=== PATIENT | female | born 1955 | race Caucasian/White ===

== ENCOUNTER → 2017-03-09 | Outpatient (CLI) | payer BC ==
[2017-03-09 08:19] LABS: HEMOGLOBIN 15.9 gm/dl (12.3-15.3); RED BLOOD COUNT 5.03 M/UL (4.00-5.10); WHITE BLOOD COUNT 7.2 K/UL (4.5-11.0)
[2017-03-09 08:50] LABS: BUN/CREATININE RATIO 20 (0-10)
== END ==
LOC: LAB 07:40
PROVIDERS: Internal Medicine
DX: E11.9 Type 2 diabetes mellitus without complications (principal); E55.9 Vitamin D deficiency, unspecified; E78.4 Other hyperlipidemia
CPT/HCPCS: 36415; 80048; 80061; 80076; 82043; 82570; 83036; 84443; 85025

== ENCOUNTER → 2017-03-15 | Outpatient (CLI) | payer BC | LOC: RAD 16:10 | DX: M79.672 Pain in left foot (principal) | CPT/HCPCS: 73630 ==

== ENCOUNTER → 2017-05-09 | Outpatient (CLI) | payer BC ==
[2017-05-09 10:51] LABS: BORDETELLA PERTUSSIS Not Detected (Negative); CHLAMYDOPHLA PNEUMONIAE Not Detected (Negative); CORONAVIRUS HKU1 Not Detected (Negative); CORONAVIRUS NL63 Not Detected (Negative); CORONAVIRUS OC43 Not Detected (Negative); CORONOAVIRUS 229E Not Detected (Negative); HUMAN METAPNEUMOVIRUS Not Detected (Negative); HUMAN RHINOVIRUS/ENTEROVIRUS Not Detected (Negative); INFLUENZA A Not Detected (Negative); INFLUENZA A H-1-2009 Not Detected (Negative); INFLUENZA A H1 Not Detected (Negative); INFLUENZA A H3 Not Detected (Negative); INFLUENZA B Not Detected (Negative); MYCOPLASMA PNEUMONIAE Not Detected (Negative); PARAINFLUENZA VIRUS 1 Not Detected (Negative); PARAINFLUENZA VIRUS 2 Not Detected (Negative); PARAINFLUENZA VIRUS 3 Not Detected (Negative); PARAINFLUENZA VIRUS 4 Not Detected (Negative); RESPIRATORY SYNCYTIAL VIRUS Not Detected (Negative)
== END ==
LOC: LAB 10:26
PROVIDERS: Internal Medicine
DX: L08.9 Local infection of the skin and subcutaneous tissue, unspecified (principal)
CPT/HCPCS: 87077; 87081; 87186; 87486; 87581; 87633; 87798

== ENCOUNTER → 2017-05-11 | Outpatient (CLI) | payer BC ==
[2017-05-11 11:24] LABS: HEMOGLOBIN 14.8 gm/dl (12.3-15.3); RED BLOOD COUNT 4.56 M/UL (4.00-5.10); WHITE BLOOD COUNT 5.7 K/UL (4.5-11.0)
== END ==
LOC: LAB 10:57 → OPSV 10:57
PROVIDERS: Physician Assistant
DX: E86.0 Dehydration (principal); R50.9 Fever, unspecified; R79.89 Other specified abnormal findings of blood chemistry
CPT/HCPCS: 36415; 80048; 83605; 85025; 87040; 96360; 96361; J7030

== ENCOUNTER → 2020-11-21 | Outpatient (CLI) | payer BC ==
[~2020-11-21] MED LIST: AREDS EYE VITAMIN PO; ASPIRIN CHEWABL81 MG PO; CO Q-10100 MG PO; CYMBALTA60 MG PO; DIOVAN80 MG PO; LOVAZA1 GM PO; TOPROL XL50 MG PO; ZOCOR80 MG PO
== END ==
LOC: EROP 08:57
DX: R19.7 Diarrhea, unspecified (principal); Z20.822 Contact with and (suspected) exposure to COVID-19
CPT/HCPCS: 87635

== ENCOUNTER → 2021-01-27 | Outpatient (CLI) | payer BC | LOC: MAMO 15:00 | DX: Z12.31 Encounter for screening mammogram for malignant neoplasm of breast (principal) | CPT/HCPCS: 77063; 77067 ==

== ENCOUNTER → 2021-05-07 | Outpatient (CLI) | payer MEDICARE | LOC: EXRD 13:31 | DX: M79.606 Pain in leg, unspecified (principal); R60.0 Localized edema; R09.89 Other specified symptoms and signs involving the circulatory and respiratory systems; I73.9 Peripheral vascular disease, unspecified | CPT/HCPCS: 93922; 93925 ==

== ENCOUNTER → 2021-05-26 | Outpatient (CLI) | payer MEDICARE | LOC: KOH-I 10:30 | DX: Z87.891 Personal history of nicotine dependence (principal) | CPT/HCPCS: 71271 ==

== ENCOUNTER → 2021-07-23 | Outpatient (CLI) | payer MEDICARE | LOC: KOH-I 09:49 | DX: H57.11 Ocular pain, right eye (principal) | CPT/HCPCS: 70200 ==

== ENCOUNTER → 2021-08-18 | Outpatient (CLI) | payer MEDICARE ==
[2021-08-18 12:50] LABS: HEMOGLOBIN 17.5 gm/dl (12.3-15.3); RED BLOOD COUNT 5.02 M/UL (4.00-5.10); WHITE BLOOD COUNT 9.3 K/UL (4.5-11.0)
[2021-08-18 13:18] LABS: BUN/CREATININE RATIO 18 (0-10)
== END ==
LOC: LAB 11:49
PROVIDERS: Physician Assistant
DX: E78.5 Hyperlipidemia, unspecified (principal)
CPT/HCPCS: 36415; 80048; 80061; 80076; 82607; 83036; 84443; 85025

== ENCOUNTER 2022-03-20 13:46 | Observation (INO) | payer OTHER ==
[~2022-03-20] VITALS: Ht 170.2 cm; Wt 91.6 kg
[2022-03-20 15:46] LABS: HEMOGLOBIN 15.4 gm/dl (12.3-15.3); RED BLOOD COUNT 4.29 M/UL (4.00-5.10); WHITE BLOOD COUNT 14.5 K/UL (4.5-11.0)
[2022-03-20 16:06] LABS: BUN/CREATININE RATIO 25 (0-10)
[2022-03-21 03:43] LABS: HEMOGLOBIN 13.5 gm/dl (12.3-15.3); WHITE BLOOD COUNT 11.4 K/UL (4.5-11.0)
[2022-03-21 03:45] LABS: RED BLOOD COUNT 3.73 M/UL (4.00-5.10)
[2022-03-21 03:46] LABS: BUN/CREATININE RATIO 25 (0-10)
[2022-03-21] MEDS ORDERED: PROTONIX 40 MG40 M1 PO (11:39)
[2022-03-21] MEDS ORDERED: DOXYCYCLINE HY100 MG PO (11:40)
== END 2022-03-21 15:00 | disposition home or self-care (01) ==
LOC: ER1 13:46 → CDU 18:17 → MED SURG 4 18:17
PROVIDERS: Emergency Medicine; ADMIT Internal Medicine
DX: M10.9 Gout, unspecified (principal); I10 Essential (primary) hypertension; E78.5 Hyperlipidemia, unspecified; Z79.82 Long term (current) use of aspirin; Z79.899 Other long term (current) drug therapy; Z20.822 Contact with and (suspected) exposure to COVID-19
CPT/HCPCS: 36415; 80053; 83605; 84550; 85025; 85027; 85652; 86140; 87040; 93970; 96372; 96374; 96375; 96376; 99285; G0378; J1650; J1885; J2185; J2270; J2405; J3370; J7070; U0002

== ENCOUNTER → 2022-03-26 | Outpatient (CLI) | payer OTHER ==
[~2022-03-26] MED LIST changes: +DOXYCYCLINE HY100 MG PO; +PROTONIX 40 MG40 M1 PO
== END ==
LOC: MAMO 03-24 15:30
DX: Z12.31 Encounter for screening mammogram for malignant neoplasm of breast (principal)
CPT/HCPCS: 77063; 77067

== ENCOUNTER 2022-04-05 11:18 | Emergency (ER) | payer MEDICARE ==
[2022-04-05 12:51] LABS: HEMOGLOBIN 14.1 gm/dl (12.3-15.3); RED BLOOD COUNT 3.98 M/UL (4.00-5.10); WHITE BLOOD COUNT 15.8 K/UL (4.5-11.0)
[2022-04-05] MEDS ORDERED: ENDOCET 5-3251 EACH PO (17:09)
[2022-04-05] MEDS ORDERED: COLCHICINE 0.60.6 MG PO (17:09)
[2022-04-05] MEDS ORDERED: BACTRIM 400-801 EACH PO (17:09)
[2022-04-05] MEDS ORDERED: CEPHALEXIN500 M1 PO (17:09)
== END 2022-04-05 19:20 | disposition home or self-care (01) ==
LOC: ER1 11:18
PROVIDERS: Emergency Medicine
DX: M10.9 Gout, unspecified (principal)
CPT/HCPCS: 73630; 80053; 83880; 84550; 85025; 85652; 86140; 99284

== ENCOUNTER → 2022-04-29 | Outpatient (CLI) | payer MEDICARE ==
[~2022-04-29] MED LIST changes: +BACTRIM 400-801 EACH PO; +CEPHALEXIN500 M1 PO; +COLCHICINE 0.60.6 MG PO; +ENDOCET 5-3251 EACH PO
== END ==
LOC: KOH-I 04-21 10:30 → MRI 14:50 → KOH-I 15:15 → MRI 15:15
DX: M79.671 Pain in right foot (principal); T14.8XXD Other injury of unspecified body region, subsequent encounter; M21.619 Bunion of unspecified foot; L03.115 Cellulitis of right lower limb; M1A.9XX1 Chronic gout, unspecified, with tophus (tophi); R93.7 Abnormal findings on diagnostic imaging of other parts of musculoskeletal system
CPT/HCPCS: 73718

== ENCOUNTER → 2022-07-06 | Outpatient (CLI) | payer MEDICARE | LOC: CT 13:30 → KOH-I 13:38 → CT 14:00 | DX: Z87.891 Personal history of nicotine dependence (principal); R91.1 Solitary pulmonary nodule | CPT/HCPCS: 71271 ==